=== PATIENT | female | born 1970 | race Caucasian/White ===

== ENCOUNTER → 2019-11-09 12:43 | Outpatient (CLI) | payer BC ==
[2013-04-30 11:14] VITALS: BMI 38.8
[~2019-11-09 12:43] MED LIST: BUPROPION HCL150 M1 PO; CLARITIN 10 MG10 MG PO; EFFEXOR XR150 MG PO; HYDROCHLOROTHIA25 MG PO; LEXAPRO10 MG PO; MOTRIN800 MG PO; MULTI-DAY VITAM1 TAB PO; NALTREXONE HCL50 MG; PERCOCET 5/3251 TA1 PO; PROVENTIL/2.5 MG/3 M INH; QVAR8.7 GM INH
== END | disposition home or self-care (01) ==
LOC: D.LABREF 12:43
PROVIDERS: ATTEND Podiatrist
DX: Z11.59 Encounter for screening for other viral diseases (principal); M77.32 Calcaneal spur, left foot

== ENCOUNTER 2019-11-10 05:18 | Day surgery (SDC) | payer BC ==
[2019-11-08 14:39] LABS: HEMATOCRIT 41.2 % (36.0-48.0); HEMOGLOBIN 12.9 g/dL (12-16); MCH 27.2 pg (26.0-34.0); MCHC 31.3 g/dL (31.0-37.0); MCV 86.9 fL (80.0-100.0); MEAN PLATELET VOLUME 10.7 fL (7.4-10.4); RBC 4.74 10x6/uL (4.00-5.40); RDW 14.8 % (11.5-14.5); WBC 8.3 10x3/uL (4.8-10.8)
[~2019-11-10] VITALS: Ht 167.6 cm; Wt 133.4 kg
--- NOTE | ~2019-11-10 | OP ---
PATIENT NAME: GAIL ROJAS MEDICAL RECORD: [id number] :66 LOCATION:D.OPS ADMISSION DATE: SURGEON: JUDAH MATHIS DPM DATE OF OPERATION: 11/10/2019 PREOPERATIVE DIAGNOSES: 1. Left equinus. 2. Left calcaneal spur with intratendinous calcifications. 3. Left Achilles tendon disruption. POSTOPERATIVE DIAGNOSES: 1. Left equinus. 2. Left calcaneal spur with intratendinous calcifications. 3. Left Achilles tendon disruption. PROCEDURES: 1. Left gastroc recession. 2. Left calcaneal spur removal. 3. Left Achilles repair. ANESTHESIA: Preoperative popliteal block per the anesthesia department as well as infiltration of local anesthetic around the surgical site intraoperatively. HEMOSTASIS: Left thigh tourniquet at 350 mmHg. PREOPERATIVE DETAILS: The patient came to the hospital today for surgical repair of a disruption of the left Achilles tendon. She has had problems with this for several months and is getting worse, causing severe pain and limitation. The patient was taken to the operating room and following induction of general anesthesia, the patient was placed on the operating table in a prone position. The left extremity was then prepped and draped in the usual aseptic technique followed by exsanguination and inflation of tourniquet. PROCEDURE #1: Left gastroc recession. A 15-blade was used to create a 3-4 cm linear incision over the posterior aspect of the gastroc aponeurosis. The incision was deepened down through subcutaneous tissue, retracting the sural nerve and vein. Dissection was carried down bluntly through the subcutaneous fat to the peritenon. A linear incision was made and the peritenon was freed from the posterior aspect of the aponeurosis. A 15-blade was used to create a V-cut through the aponeurosis with the foot held in dorsiflexion allowing adequate dorsiflexion of the ankle. The wound was flushed. The skin was then closed with skin yennifer. PROCEDURE #2: Left calcaneal spur removal as well as intratendinous calcifications. A 15-blade was used to create an incision on the posterior aspect of the left heel, just medial to the midline. The incision was deepened down through subcutaneous tissue to the insertion of the Achilles tendon. The area was freed. At this time, a 15-blade was used to resect the Achilles tendon from the back of the calcaneus. There was noted to be significant intratendinous calcifications up in the tendon as well as posterior calcaneal spurring. A sagittal saw was then used to remove the spur on the posterior aspect of the heel as well as a 15-blade was used to dissect and remove the intratendinous calcifications, which were quite large, approximately 1 cm in diameter. OPERATIVE REPORT [id number] GAIL ROJAS PROCEDURE #3: Left Achilles tendon repair. Four holes were made in the posterior aspect of the calcaneus in a square technique followed by insertion of 4 implants utilizing a suture bridge technique suturing the Achilles tendon back down to the calcaneus in a very rigid fashion utilizing 4 implants. Following the repair, the foot was put through range of motion and noted excellent fixation of the tendon. The wound was flushed. The peritenon was closed with 3-0 Vicryl, the subcutaneous tissue with 4-0 Rapide and the skin was closed with 4-0 Rapide in a subcuticular technique followed by Dermabond. Prior to dressing the wound, a 25 cc of Marcaine plain was infiltrated around the posterior left leg. Adaptic, 4 x 4 and Conform were used to dress the wound followed by application of modified Lopez compression dressing. Tourniquet was deflated. POSTOPERATIVE DETAILS: The patient tolerated the procedure well and left the OR with vital signs stable and vascular status at preoperative levels. The patient was transported to recovery per anesthesia in stable condition. TRANSINT:[id number] Voice Confirmation ID: [id number] DOCUMENT ID: [id number] JUDAH MATHIS DPM CC: [id number] DICTATION DATE: 11/10/19839 STEAM BOX TENDER: 11/10/19 1250 [facility] [address] [id number]
[2019-11-10 06:12] VITALS: BP 162/52; Ht 167.6 cm; Wt 133.4 kg
--- NOTE | 2019-11-10 09:32 | NUR ---
REBLOCK OF NERVE COMPLETE BY JACOBSON [id number]
== END 2019-11-10 10:45 | disposition home or self-care (01) ==
LOC: D.OPS 05:18 → D.PAN 07:00 → D.OPS 07:00 → D.PAN 08:00 → D.OPS 10:45
PROVIDERS: Anesthesiology; ATTEND Podiatrist
DX: Q66.02 Congenital talipes equinovarus, left foot (principal); M77.32 Calcaneal spur, left foot; S86.012A Strain of left Achilles tendon, initial encounter; X58.XXXA Exposure to other specified factors, initial encounter; J45.909 Unspecified asthma, uncomplicated